=== PATIENT | female | born 1945 | race Hispanic/Latino ===

== ENCOUNTER → 2017-08-28 | Outpatient (CLI) | payer OTHER | END | disposition home or self-care (01) | LOC: RAH 08-24 08:54 | PROVIDERS: ATTEND Internal Medicine Gastroenterology | DX: D69.8 Other specified hemorrhagic conditions (principal); K76.0 Fatty (change of) liver, not elsewhere classified | CPT/HCPCS: 76700; 93975 ==

== ENCOUNTER → 2019-02-13 | Outpatient (CLI) | payer OTHER | END | disposition home or self-care (01) | LOC: RAH 10:24 | PROVIDERS: ATTEND Family Medicine | DX: Z12.31 Encounter for screening mammogram for malignant neoplasm of breast (principal) | CPT/HCPCS: 77067 ==

== ENCOUNTER 2020-01-22 19:10 | Emergency (ER) | payer OTHER ==
[2020-01-22 20:20] LABS: BASOPHILS % (AUTO) 0.4 % (0.0-5.0); EOSINOPHILS % (AUTO) 3.5 % (0.0-8.0); HEMATOCRIT 39.6 % (36-48); LYMPHOCYTES % (AUTO) 20.2 % (21.0-51.0); MEAN CORPUSCULAR HEMOGLOBIN 31.2 pg (27.0-33.0); MEAN CORPUSCULAR HGB CONC 34.8 g/dL (32.0-36.0); MEAN CORPUSCULAR VOLUME 89.6 fL (79-99); MONOCYTES % (AUTO) 6.7 % (3.0-13.0); PLATELET COUNT (AUTO) 144 K/uL (130-400); RED BLOOD CELL COUNT(AUTO) 4.42 MIL/uL (4.00-5.50); RED CELL DISTRIBUTION WIDTH 12.2 % (11.0-15.5); WHITE BLOOD COUNT (AUTO) 4.9 K/uL (4.8-10.8)
[2020-01-22 20:29] LABS: CREATININE 0.7 mg/dL (0.5-1.5)
[2020-01-22 20:33] LABS: BILIRUBIN,TOTAL 0.3 mg/dL (0.2-1.0); TOTAL PROTEIN, SERUM 7.2 g/dL (6.0-8.3)
[2020-01-22] MEDS ORDERED: ACETAMINOPHEN EXTRA STRENGTH 500 MG TABLET ONE (22:28)
== END 2020-01-22 23:49 | disposition home or self-care (01) ==
LOC: EDH 19:10
DX: S42.017A Nondisplaced fracture of sternal end of right clavicle, initial encounter for closed fracture (principal); S40.011A Contusion of right shoulder, initial encounter; I10 Essential (primary) hypertension; F32.9 Major depressive disorder, single episode, unspecified; E78.00 Pure hypercholesterolemia, unspecified; Z79.899 Other long term (current) drug therapy; W18.39XA Other fall on same level, initial encounter; Y93.01 Activity, walking, marching and hiking; Y92.89 Other specified places as the place of occurrence of the external cause; Y99.8 Other external cause status
CPT/HCPCS: 29505; 36415; 70450; 71250; 72125; 73000; 80053; 85025

== ENCOUNTER → 2020-07-06 | Outpatient (CLI) | payer MEDICARE, OTHER | END | disposition home or self-care (01) | LOC: RAH 13:41 | PROVIDERS: ATTEND Family Medicine | DX: Z12.31 Encounter for screening mammogram for malignant neoplasm of breast (principal) | CPT/HCPCS: 77067 ==

== ENCOUNTER 2020-11-22 17:18 | Emergency (ER) | payer MEDICARE ==
[~2020-11-22] VITALS: Ht 152.4 cm; Wt 72.6 kg
[2020-11-22 17:50] LABS: BASOPHILS % (AUTO) 0.2 % (0.0-5.0); EOSINOPHILS % (AUTO) 0.1 % (0.0-8.0); HEMATOCRIT 37.4 % (36-48); LYMPHOCYTES % (AUTO) 2.5 % (21.0-51.0); MEAN CORPUSCULAR HEMOGLOBIN 30.7 pg (27.0-33.0); MEAN CORPUSCULAR HGB CONC 34.8 g/dL (32.0-36.0); MEAN CORPUSCULAR VOLUME 88.2 fL (79-99); NEUTROPHILS % (AUTO) 91.6 % (40.0-77.0); PLATELET COUNT (AUTO) 95 K/uL (130-400); RED BLOOD CELL COUNT(AUTO) 4.24 MIL/uL (4.00-5.50); RED CELL DISTRIBUTION WIDTH 12.5 % (11.0-15.5); WHITE BLOOD COUNT (AUTO) 10.7 K/uL (4.8-10.8)
[2020-11-22 17:59] LABS: CARBON DIOXIDE 28 mmol/L (21-32); CHLORIDE 100 mmol/L (101-111); CREATININE 0.9 mg/dL (0.5-1.5); GLOMERULAR FILTR. RATE CALC 65 mL/min (>60); GLUCOSE,RANDOM 166 mg/dL (70-105); POTASSIUM 3.6 mmol/L (3.5-5.1); SODIUM SERUM 136 mmol/L (136-145); UREA NITROGEN, BLOOD 14 mg/dL (7-18)
[2020-11-22 18:04] VITALS: BP 122/78
[2020-11-22 18:10] LABS: ALANINE AMINOTRANSFERASE 21 U/L (12-78); ALBUMIN 3.5 g/dL (3.5-5.0); ASPARTATE AMINOTRANSFERASE 20 U/L (10-37); BILIRUBIN,TOTAL 0.9 mg/dL (0.2-1.0); CREATINE KINASE, TOTAL 121 U/L (21-232); MYOGLOBIN 224 ng/mL (10-92); TOTAL PROTEIN, SERUM 6.9 g/dL (6.0-8.3); TROPONIN I < 0.04 ng/mL (0.00-0.06)
[2020-11-22 18:26] LABS: APPEARANCE,URINE CLOUDY (CLEAR); BILIRUBIN,URINE NEGATIVE (NEGATIVE); COLOR,URINE YELLOW (YELLOW); GLUCOSE, URINE (UA) NEGATIVE (NEGATIVE); KETONES,URINE 5 mg/dL (NEGATIVE); LEUKOCYTE ESTERASE ,URINE MODERATE (NEGATIVE); NITRATE,URINE POSITIVE (NEGATIVE); OCCULT BLOOD,URINE MODERATE (NEGATIVE); PROTEIN,URINE >=300 mg/dL (NEGATIVE)
[2020-11-22] MEDS ORDERED: ACETAMINOPHEN 500 MG TABLET PO ONE (18:30)
[2020-11-22] MEDS ORDERED: 0.9%NACL 1000ML 1,000 ML IV ONE (18:30)
[2020-11-22 18:33] LABS: BACTERIA,URINE Many /HPF (None Seen); RBC,URINE None Seen /HPF (0-1); SQUAMOUS EPITHELIAL CELL,UR 0-2 /HPF (0-2); WBC,URINE 26-50 /HPF (0-1)
[2020-11-22] MEDS ORDERED: CEFTRIAXONE 1G VIAL IVP ONE (19:00)
[2020-11-22] MEDS ORDERED: ACET-2247 PO (19:14)
[2020-11-22] MEDS ORDERED: ONDA4TAB10 PO (19:14)
[2020-11-22] MEDS ORDERED: CEPH500B PO (19:14)
[2020-11-22 19:20] VITALS: BP 116/60
== END 2020-11-22 19:40 | disposition home or self-care (01) ==
LOC: EDH 17:18
DX: N39.0 Urinary tract infection, site not specified (principal); J02.0 Streptococcal pharyngitis; E86.0 Dehydration; Z20.822 Contact with and (suspected) exposure to COVID-19; I10 Essential (primary) hypertension; Z79.899 Other long term (current) drug therapy; Z98.890 Other specified postprocedural states
CPT/HCPCS: 36415; 71045; 80053; 81001; 82550; 83605; 83874; 84484; 85025; 86140; 87040 ×2; 87077; 87088; 87186; 87635; 87804 ×2; 87880; 93005; 96361; 96374; 99285; C9803; J0696; J7030

== ENCOUNTER 2023-02-19 23:10 | Emergency (ER) | payer MEDICARE ==
[~2023-02-19] VITALS: Ht 152.4 cm; Wt 73.9 kg
[~2023-02-19 23:10] MED LIST: ACET-2247 PO; CEPH500B PO; ONDA4TAB10 PO
[2023-02-20] MEDS ORDERED: CLONIDINE HCL 0.2 MG TABLET PO ONE
[2023-02-20] MEDS ORDERED: LISI20TA24 PO (00:04)
[2023-02-20] MEDS ORDERED: AMLO10TA4 PO (00:04)
[2023-02-20 00:07] VITALS: BP 141/95; PULSE 75; RESP 18; O2SAT 98
== END 2023-02-20 01:22 | disposition home or self-care (01) ==
LOC: EDH 23:10
DX: I10 Essential (primary) hypertension (principal); F41.9 Anxiety disorder, unspecified; Z79.899 Other long term (current) drug therapy; Z98.890 Other specified postprocedural states; Z90.49 Acquired absence of other specified parts of digestive tract

== ENCOUNTER → 2023-07-25 | Outpatient (CLI) | payer MEDICARE ==
[~2023-07-25] MED LIST changes: +AMLO10TA4 PO; +LISI20TA24 PO
== END ==
LOC: RAH 11:30
PROVIDERS: ATTEND Internal Medicine
DX: R91.1 Solitary pulmonary nodule (principal); Z12.2 Encounter for screening for malignant neoplasm of respiratory organs
CPT/HCPCS: 71250

== ENCOUNTER → 2024-02-14 | Outpatient (CLI) | payer MEDICARE ==
[~2024-02-14] MED LIST changes: +IOHEXOL-350 75 ML VIAL IV ONE; +ONDA-243 PO; -ONDA4TAB10 PO
== END | disposition home or self-care (01) ==
LOC: RAH 13:10
PROVIDERS: ATTEND Internal Medicine
DX: R91.8 Other nonspecific abnormal finding of lung field (principal); M47.815 Spondylosis without myelopathy or radiculopathy, thoracolumbar region
CPT/HCPCS: 71270; Q9967

== ENCOUNTER → 2024-02-27 | Outpatient (CLI) | payer MEDICARE ==
[~2024-02-27] MED LIST changes: -IOHEXOL-350 75 ML VIAL IV ONE
== END | disposition home or self-care (01) ==
LOC: RAH 13:27
PROVIDERS: ATTEND Internal Medicine
DX: M85.88 Other specified disorders of bone density and structure, other site (principal); Z78.0 Asymptomatic menopausal state
CPT/HCPCS: 77080

== ENCOUNTER → 2024-09-09 | Outpatient (CLI) | payer MEDICARE ==
[~2024-09-09] MED LIST changes: +AMLO-915 PO; -AMLO10TA4 PO; +IOHEXOL-350 50ML VIAL IV ONE
--- NOTE | 2024-09-09 13:29 | HMCIMG ---
CT angiogram chest CLINICAL INDICATION: PULMONARY NODULE COMPARISON: None. CT Dose Index (CTDI): 113.50 mGy Dose Length Product (DLP): 1408.10 total mGy PROTOCOL: Contrast: 100 cc of Isovue-370, injected IV, no complications Examination is done at 2.5 millimeter volumetric acquisition after contrast administration. Photography is done at 5 millimeter thick intervals for the thorax. FINDINGS: There is no evidence of pulmonary embolism. The airway is intact. The trachea and major bronchi are unremarkable. No pulmonary infiltrates or mass lesions are seen. No pleural effusions are identified. The exam of the crispin and mediastinum is unremarkable. No evidence of hilar enlargement is seen. The aorta shows no aneurysmal dilatation or significant atheromatous calcification. There is no thoracic aortic dissection. No significant brachiocephalic vascular abnormalities are seen. The heart is unremarkable. It is not enlarged. No significant coronary arterial calcifications are seen. There is no pericardial effusion. The rib cage appears unremarkable. The soft tissues of the chest wall are unremarkable. The dorsal spine shows no significant abnormalities. Limited evaluation of the upper abdomen demonstrates no gross abnormalities. IMPRESSION: No evidence of pulmonary embolism. Clear lungs. This study was performed using dose reduction techniques to include automated exposure control and/or adjustment of the mA and/or kV according to patient size.
== END | disposition home or self-care (01) ==
LOC: RAH 11:04
PROVIDERS: ATTEND Internal Medicine
DX: R91.1 Solitary pulmonary nodule (principal)
CPT/HCPCS: 71270; Q9967